=== PATIENT | female | born 1940 | race Two or more races ===

== ENCOUNTER 2024-12-12 22:36 | Emergency (ER) | payer OTHER, MEDICAID ==
--- NOTE | 2024-12-12 22:58 | ED.PDOC ---
HPI Comments This patient is a an 84-year-old female who was brought in by EMS today due to complaints of AFib with RVR. Patient has a history of AFib with a RVR in arrives with a heart rate of 150+. Patient was relatively asymptomatic at time of arrival. Patient denies any chest pain concerns. Patient is a poor historian and therefore, difficult to assess history of cardiac concerns and therapies. 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 Patient does not know if it is a defibrillator or pacemaker. Heart rate was 158 at arrival. Chief Complaint: Palpitations Time Seen by MD: 22:40 Reviewed Notes: Nurses Notes, Direct Marketing Analyst Notes Allergies: Coded Allergies: Penicillins (Verified Allergy, Mild, 12/12/24) Information Source: Patient, Emergency Med Personnel Mode of Arrival: EMS Severity: Moderate Timing: Minutes Duration: Since onset Prehospital treatment: Mud Logger Radiation: No Radiation Quality: Other (No chest pain) Past Medical History PAST MEDICAL HISTORY: AFIB (With RVR), Denies Surgical History: Denies all surgeries DEMI CHEF History: No Pertinent DEMI CHEF History Family History Family History: Reviewed,noncontributory to illness, No family hx of Cancer, No family hx of DM, No family hx of Heart george, No family hx of HTN, No family hx ofKidney george, No family hx of Liver george, No family hx of Lung george, No family hx of Stroke Social History Smoker: Non-Smoker Alcohol: Denies ETOH Use Drugs: Denies Drug Use Lives In: Home Constitutional: denies: chills, diaphoresis, fatigue, fever, malaise, sweats, weakness, others EENTM: denies: blurred vision, double vision, ear bleeding, ear discharge, ear drainage, ear pain, ear ringing, eye pain, eye redness, hearing loss, mouth pain, mouth swelling, nasal discharge, nose bleeding, nose congestion, nose pain, photophobia, tearing, throat pain, throat swelling, voice changes, others Respiratory: denies: cough, hemoptysis, orthopnea, SOB at rest, shortness of breath, SOB with excertion, stridor, wheezing, others Cardiovascular: reports: irregular heart beat, palpitations; denies: chest pain, dizzy spells, diaphoresis, Dyspnea on exertion, edema, left arm pain, lightheadedness, PND, syncope, others Gastrointestinal: denies: abdomen distended, abdominal pain, blood streaked bowels, constipated, diarrhea, dysphagia, difficulty swallowing, hematemesis, melena, nausea, poor appetite, poor fluid intake, rectal bleeding, rectal pain, vomiting, others Genitourinary: denies: abnormal vagina bleeding, burning, dyspareunia, dysuria, flank pain, frequency, hematuria, incontinence, pain, , vagina discharge, urgency, others Neurological: denies: dizziness, fainting, headache, left sided numbness, left sided weakness, numbness, paresthesia, pre-existing deficit, right sided numbness, right sided weakness, seizure, speech problems, tingling, tremors, weakness, others Musculoskeletal: denies: back pain, gout, joint pain, joint swelling, muscle pain, muscle stiffness, neck pain, others Integumetry: denies: bruises, change in color, change in hair/nails, dryness, laceration, lesions, lumps, rash, wounds, others Allergic/Immunocompromised: denies: Difficulty Healing, Frequent Infections, Hives, Itching, others Hematologic/Lymphatic: denies: anemia, blood clots, easy bleeding, easy bruising, swollen glands, others Endocrine: denies: excessive hunger, excessive sweating, excessive thirst, excessive urination, flushing, intolerance to cold, intolerance to heat, unexplained weight gain, unexplained weight loss, others Psychiatric: denies: anxiety, bipolar disorder, depression, hopeless, panic disorder, schizophrenia, sleepless, suicidal, others Physical Exam General Appearance: No Apparent Distress (Patient was in no distress at time of evaluation.), Normal HEENT: Normal ENT Inspection, Pharynx Normal, TMs Normal Neck: Full Range of Motion, Non-Tender, Normal, Normal Inspection Respiratory: Chest Non-Tender, Lungs Clear, No Accessory Muscle Use, No Respiratory Distress, Normal Breath Sounds Cardiovascular: No Edema, No JVD, Normal Peripheral Pulses, Tachycardia, Other (Irregular irregular rate and rhythm) Breast Exam: Deferred Gastrointestinal: No Organomegaly, Non Tender, No Pulsatile Mass, Normal Bowel Sounds, Soft Genitalia: Deferred Pelvic: Deferred Rectal: Deferred Extremities: No calf tenderness, Normal capillary refill Neurologic: Alert Cerebellar Function: NOT DONE Reflexes: NOT DONE Skin: Dry, Normal Color, Warm Lymphatic: No Adenopathy Was a procedure done? Was a procedure done?: No CP Differential Dx Differential Diagnosis: A-fib (With a RVR), AV Block 1st Degree, NM Differential Diagnosis: HTN Essential X-Ray, Labs, Meds, VS Vital Signs Date Time Temp Pulse Resp B/P (MAP) Pulse Ox O2 Delivery O2 Flow Rate FiO2 12/13/24 01:06 138 130/92 12/13/24 01:00 137 12 130/92 (105) 97 12/12/24 23:44 131 12/12/24 23:15 97 14 127/76 (93) 97 12/12/24 23:07 160 127/76 12/12/24 22:59 152 Room Air* 0 21 12/12/24 22:56 98.3 149 20 142/82 (102) 97 98.3 12/12/24 22:54 98.7 136 18 139/78 98 98.7 12/12/24 22:43 158 Lab Test 12/13/24 01:10 12/13/24 00:00 12/12/24 23:05 12/12/24 22:50 Range/Units Lactic Acid Level Pending 2.7 *H 0.4-2.0 mmol/L Troponin I High Sensitivity 22 14 </=34 ng/L White Blood Count 6.7 4.4-10.8 10^3/uL Red Blood Count 4.23 4.0-5.20 10^6/uL Hemoglobin 12.2 12.2-16.2 g/dL Hematocrit 36.8 36.0-46.0 % Mean Corpuscular Volume 87.1 80.0-100.0 fL Mean Corpuscular Hemoglobin 28.9 28.0-32.0 pg Mean Corpuscular Hemoglobin Concent 33.2 32.0-36.0 g/dL Red Cell Distribution Width 16.8 H 11.8-14.3 % Platelet Count 235 140-450 10^3/uL Mean Platelet Volume 8.4 6.9-10.8 fL Neutrophils (%) (Auto) 65.6 37.0-80.0 % Lymphocytes (%) (Auto) 23.1 10.0-50.0 % Monocytes (%) (Auto) 10.0 0.0-12.0 % Eosinophils (%) (Auto) 0.9 0.0-7.0 % Basophils (%) (Auto) 0.4 0.0-2.0 % Neutrophils # (Auto) 4.4 1.6-8.6 10 ^3/uL Lymphocytes # (Auto) 1.5 0.4-5.4 10 ^3/uL Monocytes # (Auto) 0.7 0-1.3 10 ^3/uL Eosinophils # (Auto) 0.1 0-0.8 10 ^3/uL Basophils # (Auto) 0 0-0.2 10 ^3/uL Nucleated Red Blood Cells 0.0 % Sodium Level 142 136-145 mmol/L Potassium Level 3.1 L 3.5-5.1 mmol/L Chloride Level 108 H 98-107 mmol/L Carbon Dioxide Level 21 20-31 mmol/L Anion Gap 13 5-15 Blood Urea Nitrogen 12 9-23 mg/dL Creatinine 0.71 0.550-1.02 mg/dL Glomerular Filtration Rate Calc 83 >90 mL/min BUN/Creatinine Ratio 16.9 10.0-20.0 Serum Glucose 148 H 74-106 mg/dL Calcium Level 9.9 8.7-10.4 mg/dL Total Bilirubin 0.5 0.2-1.0 mg/dL Aspartate Amino Transferase (AST) 13 13-40 U/L Alanine Aminotransferase (ALT) 9 7-40 U/L Alkaline Phosphatase 106 46-116 U/L B-Type Natriuretic Peptide 257.26 0-100 pg/mL Total Protein 7.5 5.7-8.2 g/dL Albumin 4.1 3.2-4.8 g/dL Lipase 41 12-53 U/L Urine Color Colorless Yellow Urine Clarity Clear Clear Urine pH 7.0 5.0-9.0 Urine Specific [place] 1.004 1.001-1.035 Urine Protein Negative Negative Urine Ketones Negative Negative Urine Blood Trace H Negative /uL Urine Nitrite Negative Negative Urine Bilirubin Negative Negative Urine Urobilinogen Normal Negative mg/dL Urine Leukocyte Esterase Negative Negative /uL Urine RBC 1 0 - 4 /hpf Urine Microscopic WBC 2 0-5 /HPF Urine Squamous Epithelial Cells Few <5 /hpf Urine Bacteria None seen None Seen /hpf Urine Glucose Normal Normal mg/dL Current Medications Medications (Trade) Dose Ordered Sig/Dayana Route Start Time Stop Time Status Last Admin Metoprolol Tartrate (Lopressor) 5 mg Q5M IV 12/12/24 23:00 12/12/24 23:11 DC 12/13/24 01:06 Sodium Chloride 1,000 ml @ 150 mls/hr Q6H40M ONCE IV 12/13/24 00:00 12/13/24 06:39 12/12/24 23:59 X-Ray, Labs, Meds, VS Comment Laboratories were pending at time of this note. Patient arrived in AFib with a RVR. Metoprolol series has been ordered and we will convert the rhythm while in the ED. patient will be admitted for cardiac consultation. Laboratories will be reviewed when returned and if abnormal, we will respond in the ED prior to admis jayesh. Nursing notified me that this patient is a [place] insurance patient and therefore, I spoke with Dr. Troy Yun at [facility]. I advised him of patient presentation as well as EKG and laboratory results. He agreed to accept the patient as a transfer. Authorization number [id number]. Time of 1ST Reevaluation: 23:04 Reevaluation 1ST: Improved Consultation: PCP, Cardiology Patient Education/Counseling: Diagnosis, Treatment Family Education/Counseling: Diagnosis, Treatment SEPSIS Sepsis Screen Recent Procedure: No On Antibiotic Therapy: No Respiratory Rate >20: No Heart Rate >90: No Temp<36 C (96.8 F) or >38.3 C: No SBP <90 or MAP <65 mmHG: No New Acute Mental Status Change: No Is the patient on CPAP, BIPAP,: No Physician Orders Heplock Iv (12/12/24 ) Electrocardigram (12/12/24 22:45) Continuous Ekg Monitoring 08,12,16,20,00,04 (12/12/24 22:45) Electrocardigram (12/12/24 23:45) Electrocardigram (12/13/24 01:45) Sodium Chloride 0.9% (12/13/24 00:00) Potassium Chl [place] Kcl (12/13/24 02:00) Vital Signs Date Time Temp Pulse Resp B/P (MAP) Pulse Ox O2 Delivery O2 Flow Rate FiO2 12/13/24 01:06 138 130/92 12/13/24 01:00 137 12 130/92 (105) 97 12/12/24 23:44 131 12/12/24 23:15 97 14 127/76 (93) 97 12/12/24 23:07 160 127/76 12/12/24 22:59 152 Room Air* 0 21 12/12/24 22:56 98.3 149 20 142/82 (102) 97 98.3 12/12/24 22:54 98.7 136 18 139/78 98 98.7 12/12/24 22:43 158 Laboratory Tests Test 12/12/24 23:05 12/13/24 01:10 Lactic Acid Level 2.7 mmol/L (0.4-2.0) *H Pending White Blood Count 6.7 10^3/uL (4.4-10.8) Medications Medications Dose Ordered Sig/[place]ana Route Start Time Stop Time Status Last Admin Dose Admin Metoprolol Tartrate 5 mg Q5M IV 12/12/24 23:00 12/12/24 23:11 DC 12/13/24 01:06 Sodium Chloride 1,000 ml @ 150 mls/hr Q6H40M ONCE IV 12/13/24 00:00 12/13/24 06:39 12/12/24 23:59 Departure 1 Departure Time of Disposition: 23:04 Impression: Primary Impression: Atrial fibrillation with RVR Disposition: ADMITTED INPATIENT Condition: Fair Discharged With: Self Critical Care Note Critical Care Time?: No Stability Stability form required: No Heart Score Heart Score: Heart Score Response (Comments) Value History Highly Suspicious 2 EKG Repolarization Disturb 1 Age >65 2 Risk Factors 1 or 2 risk factors 1 Troponin N/A 0 Total 6 MADELYN JIMENEZ PAC Dec 12, 2024 22:58
[2024-12-12 22:59] VITALS: PULSE 152
[2024-12-12] MEDS: METOPROLOL TARTRATE 1MG/1ML-5ML VIAL IV SCH (23:07)
[2024-12-12 23:17] LABS: Urine Protein, UAD Negative (Negative)
[2024-12-12 23:24] LABS: Hematocrit 36.8 % (36.0-46.0); Hemoglobin 12.2 g/dL (12.2-16.2); Mean Corpuscular Hemoglobin 28.9 pg (28.0-32.0); Mean Corpuscular Volume 87.1 fL (80.0-100.0); Nucleated Red Blood Cells % 0.0 %
[2024-12-12 23:42] LABS: Albumin 4.1 g/dL (3.2-4.8); Alkaline Phosphatase 106 U/L (46-116); Anion Gap 13 (5-15); BUN/Creatinine Ratio 16.9 (10.0-20.0); Blood Urea Nitrogen 12 mg/dL (9-23); Calcium 9.9 mg/dL (8.7-10.4); Carbon Dioxide 21 mmol/L (20-31); Lipase 41 U/L (12-53); Sodium 142 mmol/L (136-145); Total Protein 7.5 g/dL (5.7-8.2)
[2024-12-12 23:43] LABS: Bilirubin, Total 0.5 mg/dL (0.2-1.0)
[2024-12-12 23:48] LABS: Alanine Aminotransferase 9 U/L (7-40); Chloride 108 mmol/L (98-107); Glucose 148 mg/dL (74-106); Lactic Acid w/Reflex 2.7 mmol/L (0.4-2.0); Potassium 3.1 mmol/L (3.5-5.1)
[2024-12-12] MEDS: SODIUM CHLORIDE 0.9% 1,000 ML IV ONE (23:59)
[2024-12-13] MEDS: POTASSIUM CHL 20MEQ/100ML 100 ML IV SCH (02:03)
[2024-12-13 06:52] VITALS: BP 116/89; PULSE 106; RESP 12; TEMP 98.3; O2SAT 97
[2024-12-13] MEDS: METOPROLOL TARTRATE 1MG/1ML-5ML VIAL IV ONE (08:22)
[2024-12-13] MEDS ORDERED: METOPROLOL TARTRATE 1MG/1ML-5ML VIAL IV ONE (08:22)
--- NOTE | 2024-12-13 09:48 | ECG ---
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
--- NOTE | 2024-12-13 09:49 | ECG ---
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
--- NOTE | 2024-12-13 09:49 | ECG ---
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
== END 2024-12-13 08:12 | disposition short-term general hospital (02) ==
LOC: ER 22:36
DX: I48.91 Unspecified atrial fibrillation (principal); Z88.0 Allergy status to penicillin; Z95.0 Presence of cardiac pacemaker; Z79.899 Other long term (current) drug therapy
CPT/HCPCS: 36415; 80053; 81001; 83605; 83690; 83880; 84484; 85025; 93005; 96361; 96365; 96366; 96375; 99285; J3480; J7030